=== PATIENT | male | born 1965 | race Caucasian/White ===

== ENCOUNTER 2024-02-12 11:52 | Emergency (ER) | payer OTHER ==
[~2024-02-12] VITALS: Ht 177.8 cm; Wt 86.2 kg
[2024-02-12 13:52] LABS: BASOPHILS % (AUTO) 0.1 % (0.0-2.0); HEMATOCRIT 42 % (39-51); LYMPHOCYTES # (AUTO) 0.3 K/uL (0.8-4.8); LYMPHOCYTES % (AUTO) 2.5 % (20.0-44.0); MEAN CORPUSCULAR HEMOGLOBIN 30 PG (26.0-33.0); MEAN CORPUSCULAR HGB CONC 36 g/dl (31.0-36.0); MEAN CORPUSCULAR VOLUME 84 fL (80-96); MONOCYTES # (AUTO) 0.8 K/uL (0.1-1.30); NEUTROPHILS # (AUTO) 11.7 K/uL (1.8-8.9); NEUTROPHILS % (AUTO) 91.4 % (43.0-81.0); PLATELET COUNT (AUTO) 142 K/uL (150-450); RED BLOOD CELL COUNT(AUTO) 5.02 MIL/uL (4.5-6.0); RED CELL DISTRIBUTION WIDTH 13.1 % (11.5-15.0); WHITE BLOOD COUNT (AUTO) 12.8 K/uL (4.3-11.0)
[2024-02-12 13:58] LABS: CALCIUM, SERUM 9.1 mg/dL (8.5-10.1); CREATININE 1.1 mg/dL (0.6-1.3); POTASSIUM 3.4 mmol/L (3.5-5.1)
[2024-02-12] MEDS: IV NS 0.9% 1,000 ML BAG IV ONE (14:02)
[2024-02-12 14:04] LABS: ALBUMIN 3.6 g/dL (3.4-5.0); BILIRUBIN,DIRECT 0.3 mg/dL (0.0-0.2); BILIRUBIN,TOTAL 0.8 mg/dL (0.2-1.0); TOTAL PROTEIN, SERUM 8.3 g/dL (6.4-8.2)
[2024-02-12] MEDS ORDERED: ONDANSETRON HCL/PF 4 MG/2 ML VIAL ONE (14:51)
[2024-02-12] MEDS: ONDANSETRON HCL/PF - ER 4 MG/2 ML VIAL IV ONE (14:55)
[2024-02-12 15:31] LABS: APPEARANCE,URINE Clear (CLEAR); BILIRUBIN,URINE SMALL (NEGATIVE); BLOOD, URINE Large Ery/uL (NEGATIVE); COLOR,URINE YELLOW (YELLOW); KETONES,URINE 15 mg/dL (NEGATIVE); LEUKOCYTE ESTERASE ,URINE Negative (NEGATIVE); NITRITE, URINE Negative (NEGATIVE); PROTEIN,URINE 100 mg/dl (NEGATIVE); UGLUCOSE Negative (NEGATIVE); UROBILINOGEN,URINE 0.2 EU/dL (0.2)
[2024-02-12 16:14] LABS: WBC,URINE 0-2 /HPF (0-3)
[2024-02-12 16:17] LABS: ADD URINE CULTURE NO; BACTERIA,URINE 1+ /HPF (None Seen); MUCUS,URINE Moderate /LPF (None Seen); SQUAMOUS EPITHELIAL CELL,UR None Seen /HPF (None Seen)
[2024-02-12 16:34] VITALS: TEMP 98.9
[2024-02-12] MEDS ORDERED: ONDA4TAB11 PO (17:09)
[2024-02-12] MEDS ORDERED: AMOX-430 PO (17:09)
[2024-02-12 17:35] VITALS: BP 123/87; O2SAT 97
== END 2024-02-12 17:36 | disposition home or self-care (01) ==
LOC: ER 11:52
DX: R19.7 Diarrhea, unspecified (principal); R11.0 Nausea; R10.9 Unspecified abdominal pain
CPT/HCPCS: 99283; 96374; 96361; 85025; 80048; 83690; 80076; 81001; 36415; J2405; J7030

== ENCOUNTER 2025-02-02 09:41 | Emergency (ER) | payer OTHER ==
[~2025-02-02] VITALS: Ht 177.8 cm; Wt 90.7 kg
[~2025-02-02 09:41] MED LIST: AMOX-430 PO; ONDA4TAB11 PO
[2025-02-02 09:51] VITALS: BP 156/83; TEMP 98.4; O2SAT 96
[2025-02-02] MEDS ORDERED: KETOROLAC TROMETHAMINE 15 MG/ML VIAL ONE (10:28)
[2025-02-02] MEDS ORDERED: CYCLOBENZAPRINE 10 MG TABLET ONE (10:28)
[2025-02-02] MEDS ORDERED: GABAPENTIN 100 MG CAPSULE ONE (10:29)
[2025-02-02] MEDS: CYCLOBENZAPRINE 10 MG TABLET PO ONE (10:34)
[2025-02-02] MEDS: GABAPENTIN 100 MG CAPSULE PO ONE (10:34)
[2025-02-02] MEDS: KETOROLAC TROMETHAMINE 15 MG/ML VIAL IM ONE (10:34)
[2025-02-02] MEDS ORDERED: KETO10TA2 PO (12:10)
[2025-02-02] MEDS ORDERED: OXYC-128 PO (12:10)
[2025-02-02] MEDS ORDERED: CYCL10TA9 PO (12:10)
== END 2025-02-02 12:22 | disposition home or self-care (01) ==
LOC: ER 09:50
DX: M54.40 Lumbago with sciatica, unspecified side (principal); Z79.899 Other long term (current) drug therapy
CPT/HCPCS: 99283; 96372; J1885